=== PATIENT | female | born 1990 | race Caucasian/White ===

== ENCOUNTER 2018-05-16 02:05 | Inpatient (IN) | payer MEDICAID, SELFPAY ==
[2018-05-16] VITALS (36 sets, daily range): BP systolic 83–129; BP diastolic 34–91; PULSE 53–743; RESP 12–24; TEMP 36.7–37.3; O2SAT 92–100; BMI 21.7; BMI 20.8
[2018-05-16] MEDS: Naloxone 2 MG/2 ML Syringe IV ×4 (02:06→02:25)
--- NOTE | 2018-05-16 02:30 | RAD_ITS ---
STUDY: X-RAY CHEST REASON FOR EXAM: Female, 28 years old. Found unresponsive. Suspect overdose. TECHNIQUE: Single AP portable view of the chest. COMPARISON: Prior comparison studies are not available for review at this time. FINDINGS: There is an endotracheal tube with its tip approximately 5.5 cm proximal to the ena. There is a nasogastric tube at this tip below the level of the diaphragm. There is a small density in the left midlung zone likely due to granuloma. No focal infiltrate is seen. There is no demonstrated pleural abnormality. Normal size heart. Normal mediastinum and payal. Normal visualized pulmonary arteries. Normal visualized aortic arch and descending thoracic aorta. Normal visualized thoracic spine. Normal visualized ribs, clavicles, and shoulders. There is no demonstrated abnormality of the visualized soft tissue structures of the upper abdomen. RAD/Chest 1 View (Portable) IMPRESSION: 1. Status post intubation and nasogastric tube placement. 2. No active pulmonary disease. Electronically Signed: Anthony Montgomery MD at 3:10 EDT Tel , Service support ,
--- NOTE | 2018-05-16 02:30 | EKG12_ITS ---
Test Reason : Blood Pressure : / mmHG Vent. Rate : 090 BPM Atrial Rate : 090 BPM P-R Int : 160 ms QRS Dur : 096 ms QT Int : 364 ms P-R-T Axes : 067 090 -04 degrees QTc Int : 445 ms Normal sinus rhythm Rightward axis T wave abnormality, consider anterior ischemia Abnormal ECG Confirmed by ANDREINA ZENDEJAS, AUGUSTINE ([id number]), senior technical editor ISABELLA CARDENAS ([id number]) on 05/21/2018 9:22:10 AM Referred By: WILLIAM Confirmed By:AUGUSTNIE HDZ MD
--- NOTE | 2018-05-16 02:31 | CT_ITS ---
STUDY: CT BRAIN WITHOUT CONTRAST REASON FOR EXAM: Female, 28 years old. UNRESPONSIVE,PT GIVEN NARCAN HX HERIION ABUSE RADIATION DOSAGE (If Supplied By Facility): CTDIvol = ( 44.99 ) mGy, DLP = ( 796.11 ) mGycm TECHNIQUE: Transaxial CT imaging of the brain was performed without administration of intravenous contrast material. Individualized dose optimization techniques were used for this CT. COMPARISON: None. FINDINGS: Normal soft tissue structures. Normal calvarium. Normal size ventricles and extra-axial spaces for the patient's age. Normal white matter tracts of the cerebral hemispheres. Normal basal ganglia and thalami. Normal brainstem. Normal cerebellum. There is no intracranial hemorrhage. There are no findings of an acute ischemic infarction. Normal visualized paranasal sinuses. CT/Brain/Head without Contrast IMPRESSION: Normal unenhanced CT scan of the brain. Electronically Signed: Joe Aponte MD at 3:54 EDT Tel , Service support ,
[2018-05-16 02:35] LABS: Bedside Glucose 121 mg/dL (70-110)
[2018-05-16] MEDS: 0.9% Normal Saline 1,000 ML 999 ML IV (02:36)
[2018-05-16] MEDS: Succinylcholine Chloride 200 MG/10 ML Vial 100 MG IV (02:51)
[2018-05-16] MEDS: Etomidate 20 MG/10 ML Vial IV (02:51)
[2018-05-16 03:01] LABS: Mucous, Urine 0 SEEN /hpf (<or=2+); Red Blood Cells-Urine 0 SEEN /hpf (0-5); White Blood Cells 0 SEEN /hpf (0-5)
[2018-05-16 03:03] LABS: Color, Urine Yellow (Yellow); Glucose, Dipstick Normal (Normal); Ketone-Dipstick Negative (Negative); Leukocyte Esterase-Dipstick Negative /ul (Negative); Nitrite-Dipstick Negative (Negative); Occult Blood-Urine Negative /ul (Negative); Protein-Dipstick 100 mg/dl (Negative); Urine Bilirubin Dipstick Negative (Negative); Urine Clarity Clear (Clear); Urine Urobilinogen Normal (Normal); Urine pH 6.5 (5.0 - 8.0)
[2018-05-16 03:06] LABS: Internal QC Validated? YES +Cl - CLEAR BKGD; Pregnancy, Urine Negative Negative
[2018-05-16 03:09] LABS: Amorphous Sediment 1+; Bacteria RARE /hpf (None Seen); Squamous Epithelial Cells - UA 0-5 SEEN /hpf (5-10)
[2018-05-16 03:18] LABS: Amphetamine Urine VISTA NEGATIVE (<1000 ng/mL); Barbiturate Urine VISTA NEGATIVE (< 200 ng/mL); Benzodiazepine Urine VISTA NEGATIVE (< 200 ng/mL); Cocaine Urine VISTA NEGATIVE (< 300 ng/mL); Ecstacy Urine VISTA NEGATIVE (< 500 ng/mL); Methadone Urine VISTA NEGATIVE (< 300 ng/mL); PCP Urine VISTA NEGATIVE (< 25 ng/mL); THC Urine VISTA NEGATIVE (< 50 ng/mL)
--- NOTE | 2018-05-16 03:27 | ED.RN ---
0310 pt went to cat scan and back.pt decorticate,preparing for central line.
--- NOTE | 2018-05-16 03:44 | ED.VIS.GEN ---
History of Present Illness Chief Complaint: Unresponsive Informant: Pct Limited by: Coma Narrative: Patient brought in by EMS, she was apparently found in a parking lot with bystanders that did not know who she was or anything about the context. She was unconscious and unresponsive. Paramedics state that she was basically barely breathing so they began bagging her and were unable to obtain an IV, so they gave her 2 mg of Narcan intranasally as they continue to bag her. She initially was very bradycardic with a pulse less than 20 and they did CPR for several minutes, but then her pulse sped up so they stopped. Past Medical History Primary Care Physician: Care Physician,No Primary [Primary Care Provider] - Past Medical History: - - Unknown Review of Systems ROS: Unable to Obtain Physical Exam Vital Signs/Narrative: Vital Signs Temp Pulse Resp BP Pulse Ox 05/16/18 02:59 98.0 F 05/16/18 02:37 86 22 H 83/57 L 97 05/16/18 02:22 87 24 H 83/53 L 95 05/16/18 02:13 81 20 H 93/43 L 92 05/16/18 02:07 80 16 93 Inital Vital Signs reviewed: Yes General: Well nourished, Well developed Head: Normocephalic, Atraumatic Eyes: Perrl - Initially 2-3 mm and sluggishly responsive; improved after Narcan and more dilated, EOMI ENT: Moist mucous membranes, No rhinorrhea, TM's clear Neck: Supple, Nontender Cardiovascular: Regular rate, Regular rhythm, No murmurs Respiratory: No distress, CTA bilaterally, Chest nontender, Decreased Air Movement Abdomen: Soft, Nontender, Nondistended, Normal bowel sounds Back: Nontender, Normal Inspection Extremities: Nontender, No edema Skin: Normal color, No Trauma, - - Several old antecubital and ankle scars that appear to be consistent with track salazar.. Negative for: Cyanosis, Diaphoresis, Jaundice Neurological: Coma - GCS 3. All 4 extremities flaccid. Diagnostic/Tx/Re-eval Clinical Impression(s) from Imaging Studies Chest X-Ray 05/16/18 02:30 IMPRESSION: 1. Status post intubation and nasogastric tube placement. 2. No active pulmonary disease. Electronically Signed: Anthony Montgomery MD at 3:10 EDT Tel , Service support , - Rhythm Strip Rhythm Strip: Sinus Rhythm Rate: 75 Ectopy: None - EKG Initial EKG Interpretation: Sinus Rhythm Prior: No Prior - Medical Decision Making As patient was now breathing, she was supported with respiratory, nursing, and myself at bedside, we administered another 2 mg of Narcan intranasally in addition to the paramedics single dose of 2 mg, while we attempted to obtain IV access. Blood sugar is 140s. Vital signs are looking good except for blood pressure which is borderline at 89 systolic and MAP 65. Intraosseous kit was ready and I had prepped her tibia for placement because of extreme difficulty getting the line but eventually a nurse was able to get one on her third attempt. Therefore we gave 3 doses total of IV Narcan 2 mg for a total Narcan dosing of 10 mg including what she received from paramedics. She did improve but she never woke up, and her respirations became sonorous and noisy with upper airway secretions. She also began performing decerebrate posturing with her arms, increasing her GCS to 4. Therefore we elected to intubate her for airway protection and continue workup. Nursing was not able to even draw blood from her veins anywhere. Therefore after we verified to placement with chest x-ray, obtained EKG which is unremarkable, and sent her for CT head, which appears unremarkable, I emergently placed a right subclavian vein triple-lumen central line 16 cm catheter, for access and for blood studies. Curtis catheter was placed for urine studies. She will be admitted to the ICU for further evaluation and treatment for what is suspected to be cerebral ischemia from hypoxemia, probably caused by an opiate overdose. Procedures Procedure(s): Rapid sequence intubation --pretreated with oxygen, etomidate 20 mg, succinylcholine 100 mg. Intubated by myself using a MAC 3, direct laryngoscopy, the tube was visualized passing through the cords, there is no need for cricoid pressure or any other assistance device. The tube was secured at 21 cm at the lip, there was good fogging of the tube, equal breath sounds bilaterally, and good color change on CO2. Central line --prepped and draped in a sterile fashion at the right subclavian site with chlorhexidine. Anesthetized with a total of 2.5 cc plain 1% lidocaine. Finder needle found dark red nonpulsatile blood on first attempt, 16 cm triple-lumen catheter was placed via modified Seldinger technique, all 3 ports korin back dark red blood and flushed easily. Secured, awaiting chest x-ray for verification. Critical care time (excluding procedures): 30-74 minutes - 40 minutes, not including procedures ED Disposition - Plan for ED Patient: Disposition: Acute Care Hospital [facility] Chief Complaint: Unresponsive Diagnosis: Unresponsive state, Opioid overdose, Respiratory failure
--- NOTE | 2018-05-16 03:48 | ED.DCSUM_ITS ---
History of Present Illness Chief Complaint: Unresponsive Informant: [employer] Limited by: Coma Narrative: Patient brought in by EMS, she was apparently found in a parking lot with bystanders that did not know who she was or anything about the context. She was unconscious and unresponsive. Paramedics state that she was basically barely breathing so they began bagging her and were unable to obtain an IV, so they gave her 2 mg of Narcan intranasally as they continue to bag her. She initially was very bradycardic with a pulse less than 20 and they did CPR for several minutes, but then her pulse sped up so they stopped. Past Medical History Primary Care Physician: Care Physician,No Primary [Primary Care Provider] - Past Medical History: - - Unknown Review of Systems ROS: Unable to Obtain Physical Exam Vital Signs/Narrative: Vital Signs Temp Pulse Resp BP Pulse Ox 05/16/18 02:59 98.0 F 05/16/18 02:37 86 22 H 83/57 L 97 05/16/18 02:22 87 24 H 83/53 L 95 05/16/18 02:13 81 20 H 93/43 L 92 05/16/18 02:07 80 16 93 Inital Vital Signs reviewed: Yes General: Well nourished, Well developed Head: Normocephalic, Atraumatic Eyes: Perrl - Initially 2-3 mm and sluggishly responsive; improved after Narcan and more dilated, EOMI ENT: Moist mucous membranes, No rhinorrhea, TM's clear Neck: Supple, Nontender Cardiovascular: Regular rate, Regular rhythm, No murmurs Respiratory: No distress, CTA bilaterally, Chest nontender, Decreased Air Movement Abdomen: Soft, Nontender, Nondistended, Normal bowel sounds Back: Nontender, Normal Inspection Extremities: Nontender, No edema Skin: Normal color, No Trauma, - - Several old antecubital and ankle scars that appear to be consistent with track salazar.. Negative for: Cyanosis, Diaphoresis , Jaundice Neurological: Coma - GCS 3. All 4 extremities flaccid. Diagnostic/Tx/Re-eval Clinical Impression(s) from Imaging Studies Chest X-Ray 05/16/18 02:30 IMPRESSION: 1. Status post intubation and nasogastric tube placement. 2. No active pulmonary disease. Electronically Signed: Anthony Montgomery MD at 3:10 EDT Tel , Service support , - Rhythm Strip Rhythm Strip: Sinus Rhythm Rate: 75 Ectopy: None - EKG Initial EKG Interpretation: Sinus Rhythm Prior: No Prior - Medical Decision Making As patient was now breathing, she was supported with respiratory, nursing, and myself at bedside, we administered another 2 mg of Narcan intranasally in addition to the paramedics single dose of 2 mg, while we attempted to obtain IV access. Blood sugar is 140s. Vital signs are looking good except for blood pressure which is borderline at 89 systolic and MAP 65. Intraosseous kit was ready and I had prepped her tibia for placement because of extreme difficulty getting the line but eventually a nurse was able to get one on her third attempt. Therefore we gave 3 doses total of IV Narcan 2 mg for a total Narcan dosing of 10 mg including what she received from paramedics. She did improve but she never woke up, and her respirations became sonorous and noisy with upper airway secretions. She also began performing decerebrate posturing with her arms, increasing her GCS to 4. Therefore we elected to intubate her for airway protection and continue workup. Nursing was not able to even draw blood from her veins anywhere. Therefore after we verified to placement with chest x- ray, obtained EKG which is unremarkable, and sent her for CT head, which appears unremarkable, I emergently placed a right subclavian vein triple-lumen central line 16 cm catheter, for access and for blood studies. Curtis catheter was placed for urine studies. She will be admitted to the ICU for further evaluation and treatment for what is suspected to be cerebral ischemia from hypoxemia, probably caused by an opiate overdose. Procedures Procedure(s): Rapid sequence intubation --pretreated with oxygen, etomidate 20 mg, succinylcholine 100 mg. Intubated by myself using a MAC 3, direct laryngoscopy, the tube was visualized passing through the cords, there is no need for cricoid pressure or any other assistance device. The tube was secured at 21 cm at the lip, there was good fogging of the tube, equal breath sounds bilaterally, and good color change on CO2. Central line --prepped and draped in a sterile fashion at the right subclavian site with chlorhexidine. Anesthetized with a total of 2.5 cc plain 1% lidocaine. Finder needle found dark red nonpulsatile blood on first attempt, 16 cm triple-lumen catheter was placed via modified Seldinger technique, all 3 ports korin back dark red blood and flushed easily. Secured, awaiting chest x-ray for verification. Critical care time (excluding procedures): 30-74 minutes - 40 minutes, not including procedures ED Disposition - Plan for ED Patient: Disposition: Acute Care Hospital [facility] Chief Complaint: Unresponsive Diagnosis: Unresponsive state, Opioid overdose, Respiratory failure
--- NOTE | 2018-05-16 03:54 | ED.RN ---
RT SUBCLAVIAN TRIPLE LUMEN CATHETER PLACED BY DR. ALEXANDRA WITHOUT DIFFICULTY. BLOOD DRAWN FOR LABS. DRESSING PLACED.
[2018-05-16 03:56] LABS: Vista UDS pH Range 7
--- NOTE | 2018-05-16 03:56 | ED.RN ---
THIS NURSE CALLED THE LAST NUMBER THAT WE HAD FOR HER MOTHER PATRICIO, THE PHONE WENT TO [employer] AND A MESSAGE WAS LEFT STATING THAT WE WERE CALLING FROM THE HOSPITAL AND TO GIVE US A CALL BACK.
--- NOTE | 2018-05-16 04:00 | RAD_ITS ---
STUDY: X-RAY CHEST REASON FOR EXAM: Female, 28 years old. Line placement TECHNIQUE: Single AP portable view of the chest. COMPARISON: Chest x-ray earlier FINDINGS: Stable ET tube and enteric tube. Placement of right subclavian central venous catheter with tip in the mid SVC. No pneumothorax. The lungs are clear and expanded. There is no demonstrated pleural abnormality. Normal size heart. Normal mediastinum and payal. Normal visualized pulmonary arteries. Normal visualized aortic arch and descending thoracic aorta. Normal visualized thoracic spine. Normal visualized ribs, clavicles, and shoulders. There is no demonstrated abnormality of the visualized soft tissue structures of the upper abdomen. RAD/Chest 1 View (Portable) IMPRESSION: Clear lungs. Stable ET tube and enteric tube, adequately positioned. Right subclavian central venous catheter with tip in mid SVC. No pneumothorax. Electronically Signed: Nate De DO at 5:05 EDT Tel , Service support ,
--- NOTE | 2018-05-16 04:00 | ED.RN ---
information obtained from boyfriend.
--- NOTE | 2018-05-16 04:01 | ED.RN ---
OFFICER FROM [facility] TOOK CUSTODY OF PT CELL PHONE
[2018-05-16 04:09] LABS: Absolute Lymphocyte Count 1.44 X10^3/ul (0.83-4.51); Absolute Neutrophil Count 7.7 X10^3/uL (2.0-7.7); Basophil# 0.03 X10^3/uL; Basophil% 0.3 % (0-1); Eosinophil# 0.05 X10^3/uL; Eosinophils% 0.5 % (0-5); Hematocrit 35.4 % (37-47); Hemoglobin 11.8 g/dl (12.0-15.0); Lymphocyte # 1.44 X10^3/ul (4.0); Lymphocyte % 14.4 % (19-41); Mean Corp Hgb Conc 33.3 g/gl (32-36); Mean Corpuscular Volume 90.1 fL (81-99); Mean Platelet Vol. 10.6 fl (6.2-12.0); Monocyte# 0.77 X10^3/uL; Monocyte% 7.7 % (0-10); Neutrophil # 7.68 X10^3/uL (2.7-7.7); Neutrophil % 76.9 % (47-70); Platelet Count 230 K/mm3 (150-450); RBC Distribution Width CV 13.9 % (11.6-14.6); RBC Distribution Width SD 45.3 fl (35.1-43.9); Red Blood Count 3.93 M/mm3 (4.2-5.4)
[2018-05-16 04:10] LABS: POSITIVE COUNT NO; POSITIVE DIFFERENTIAL NO; POSITIVE MORPHOLOGY NO
[2018-05-16 04:18] LABS: AST(SGOT) 40 U/L (15-37); Alanine Aminotransfer ALT/SGPT 49 U/L (13-56); Albumin, Serum 3.4 g/dL (3.2-5.0); Alkaline Phosphatase 60 U/L (45-117); Anion Gap 11 (5-15); BUN 16 mg/dL (7-18); BUN/Creat Ratio 19.5 RATIO (10-20); Bilirubin, Direct 0.09 mg/dL (0.00-0.30); Calcium,Total 7.8 mg/dL (8.5-10.1); Chloride 116 mmol/L (98-107); Creatinine, Serum 0.82 mg/dL (0.55-1.02); EST Glomerular Filtration Rate 88 mL/min (>60); Est Glom Filt Rate - Afr Amer 106 mL/min (>60); Estimated Creatinine Clearance 110.45 ml/min; Globulin 3.4 g/dL (2.2-4.2); Glucose 108 mg/dL (74-106); Potassium 3.5 mmol/L (3.5-5.1); Protein, Total 6.8 g/dL (6.4-8.2); Sodium Level 146 mmol/L (136-145)
[2018-05-16 04:31] LABS: Base Excess -10 mmol/L (-2 to +2); Bicarbonate 16.8 mmol/L (22-26); Blood Gas Specimen Type ART; FI02 30; Mode A-C; O2 Delivery Device Vent; PEEP 5; PO2 136 mmHG (75-100); RR 22; SITE R Radial; SO2 99 % (95-99); Total Carbon Dioxide 18 mmol/L; Vt 500; pCO2 36.3 mmHg (35-45); pH 7.28 (7.35-7.45)
[2018-05-16] MEDS: LORazepam 2 MG/ML Syringe IV (04:38)
--- NOTE | 2018-05-16 04:38 | ED.RN ---
0430 PT RESTLESS,BILAT SOFT WRIST RESTRAINTS APPLIED.ATIVAN GIVEN FOR RESTLESSNESS.
--- NOTE | 2018-05-16 04:45 | ED.RN ---
[facility] CONTACTED TO ATTEMPT TO MAKE CONTACT WITH PT MOTHER AT THE LISTED ADDRESS
--- NOTE | 2018-05-16 05:00 | PCM.HP.STD ---
Problem List (1) Acute encephalopathy Status: Acute History of Present Illness Date of Admission: 05/16/18 Chief Complaint: Unresponsiveness The patient is a 28 year old F with a significant history of substance abuse (drug of choice, heroine) ; and tobacco abuse who was brought by the paramedics to the ED because of unresponsiveness. History was provided by her boyfriend. Patient was in the bar with her boyfriend. Patient was drinking alcohol in a bar. Her boyfriend went to the bathroom and upon return found that patient had passed out. The patient's lips and face were turning blue. Paramedics came and CPR was initiated. Per information passed on from paramedics to ED doctor, patient had bradycardia but with CPR patient began to have good pulses. Patient received narcan at the field; and narcan at the ED making a total of 10mg of narcan. Because of low [place] Coma Scale of 3 patient was intubated at emergency department; NG tube placed and subclavian line also placed because of difficulty in getting a peripheral venous access. Patient began to have more noisy breathing after receiving Narcan at emergency department and her pupil which was miotic became dilated. Before this episode and earlier in the day there was nothing out of the ordinary except the patient reported to the boyfriend that she was burning up. At emergency department it was reported that patient was initially having decerebrate posture. She was noted not to be breathing over the vent However during the course of her stay at emergency department she began to be agitated moving her extremities. Her heart rate at that time went into the 140s and her respiratory rate increased over the vent to about 29. 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 She spent 2 years in alf and was released 8 months ago. Her boyfriend reports that after release from alf he(boyfriend) has personally not seen patient using drugs. Past Medical History Allergies No Known Allergies Allergy (Verified 05/16/18 03:55) Home Medications: Ambulatory Orders Medication Instructions Recorded NK [NK] 05/16/18 Surgical History: - - Unable to obtain since patient is disoriented and intubated. [employer]OR [employer] History: - - Unable to obtain since patient is disoriented and intubated. Lives: With Family Smoking Status: Current every day smoker Tobacco Use: Cigarettes Alcohol: Heavy Drugs: Heroin - History of heroin use. Her boyfriend reported that he has seen patient used heroine after she returned from alf 8 months ago. Review of Systems Unable to obtain accurate/complete ROS d/t: Unable to obtain since patient is disoriented and intubated. VTE Information - Inpt Only VTE Present on Admission: No VTE Mechan Device Prophylaxis: None VTE Pharm Prophylaxis ordered?: Yes Patient Problems: Active and Suspected Problems Unresponsive state (Acute) Opioid overdose (Acute) Respiratory failure (Acute) Acute encephalopathy (Acute) - Physical Exam General: - - Patient intubated, mechanically ventilated and throwing extremities in bed HEENT: Atraumatic, PERRLA - Pupil initially was very sluggish to light but it improved, although it was still not brisk to light, Normocephalic Neck: Supple, No JVD Lungs: Clear to auscultation, Normal air movement, - - Initially respiration was the same as that of the vent (eupnea) but later she began to have tachypnea with moving of extremities in bed Cardiovascular: - - Initially regular but became tachycardic when patient became agitated and was moving her legs in bed. Abdomen: Hypoactive Bowel Sounds Extremities: No clubbing Skin: No rashes, No breakdown Musculoskeletal: No Muscle Wasting Lymphatic: No Cervical, Supraclavicular, or Inguinal Adenopathy Neurological: - - Patient intubated but not sedated; moving legs in the bed; but not following commands Psych/Mental Status: - - Patient intubated and not following commands Vital Signs Temp Pulse Resp BP Pulse Ox 98.0 F 69 12 103/63 100 05/16/18 02:59 05/16/18 04:53 05/16/18 04:53 05/16/18 04:53 05/16/18 04:53 Assessment/Plan All Active Problems Unresponsive state (Acute) Opioid overdose (Acute) Respiratory failure (Acute) Acute encephalopathy (Acute) The patient is a 28 year old F with a significant history of substance abuse (drug of choice, heroine) ; and tobacco abuse who was brought by the paramedics from a drinking bar because of unresponsiveness requiring CPR and emergently intubated because of [place] Coma Scale of 3 but noted to moving her extremities later at emergency department.. 1.Acute encephalopathy Patient will be admitted to the intensive care unit ABG showed metabolic acidosis; PCO2 is 36 which per Winter's formula shows appropriate compensation Etiology is unclear at this point. Her urine drug screen was unremarkable. EKG independently reviewed showed sinus rhythm. CT brain independently reviewed showed no acute pathology Chest x-ray independently reviewed showed no acute pathology Urinalysis was unremarkable except for proteinuria. With her history of drug use it could be that she was intoxicated with some drug that could not be found by her drug screen; may be carfentanyl. It could also be that she was intoxicated from alcohol; Alcohol level is pending Infectious causes are unlikely due to the rapidity of symptoms. Patient intubated to protect airway. No continuous sedation at this point Fentanyl as needed for pain and agitation. Placed on CIWA protocol with thiamine, multivitamins; folic acid and Ativan prn GI prophylaxis with Pepcid Salicylate level; ammonia level; CPK and Tylenol ordered. Magnesium level; phosphorus level and lactic acid ordered. Supportive treatment with half-normal saline; of note patient has mild hypernatremia and hyperchloremia We will keep n.p.o. for now. Polisher Brass consult. 2.Hypernatremia with hyperchloremia Etiology unclear Half-normal saline ordered. 250 mL's of free water to flush G-tube every 6 hours. 3.Non-anion gap metabolic acidosis Likely secondary to #1 Treatment as above. 4.Hypocalcemia Corrected calcium for albumin is 8.3; mildly low Trend 5.Tobacco abuse Her boyfriend reports that one pack of cigarettes last patient for a couple of days. Nicotine 7 mg patch ordered since patient is agitated. Straw Baler when appropriate 4.DVT prophylaxis Subcutaneous heparin. Code Visit Inpatient E&M: 68387 Init Hosp L3
--- NOTE | 2018-05-16 05:04 | HP.PCM_ITS ---
Problem List (1) Acute encephalopathy Status: Acute History of Present Illness Date of Admission: 05/16/18 Chief Complaint: Unresponsiveness The patient is a 28 year old F with a significant history of substance abuse ( drug of choice, heroine) ; and tobacco abuse who was brought by the paramedics to the ED because of unresponsiveness. History was provided by her boyfriend. Patient was in the bar with her boyfriend. Patient was drinking alcohol in a bar. Her boyfriend went to the bathroom and upon return found that patient had passed out. The patient's lips and face were turning blue. Paramedics came and CPR was initiated. Per information passed on from paramedics to ED doctor, patient had bradycardia but with CPR patient began to have good pulses. Patient received narcan at the field; and narcan at the ED making a total of 10mg of narcan. Because of low Boston Coma Scale of 3 patient was intubated at emergency department; NG tube placed and subclavian line also placed because of difficulty in getting a peripheral venous access. Patient began to have more noisy breathing after receiving Narcan at emergency department and her pupil which was miotic became dilated. Before this episode and earlier in the day there was nothing out of the ordinary except the patient reported to the boyfriend that she was burning up. At emergency department it was reported that patient was initially having decerebrate posture. She was noted not to be breathing over the vent However during the course of her stay at emergency department she began to be agitated moving her extremities. Her heart rate at that time went into the 140s and her respiratory rate increased over the vent to about 29. 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 She spent 2 years in [facility] and was released 8 months ago. Her boyfriend reports that after release from [facility] he(boyfriend) has personally not seen patient using drugs. Past Medical History Allergies No Known Allergies Allergy (Verified 05/16/18 03:55) Home Medications: Ambulatory Orders Medication Instructions Recorded NK [NK] 05/16/18 Surgical History: - - Unable to obtain since patient is disoriented and intubated. 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 Lives: With Family Smoking Status: Current every day smoker Tobacco Use: Cigarettes Alcohol: Heavy Drugs: Heroin - History of heroin use. Her boyfriend reported that he has seen patient used heroine after she returned from [facility] 8 months ago. Review of Systems Unable to obtain accurate/complete ROS d/t: Unable to obtain since patient is disoriented and intubated. VTE Information - Inpt Only VTE Present on Admission: No VTE Mechan Device Prophylaxis: None VTE Pharm Prophylaxis ordered?: Yes Patient Problems: Active and Suspected Problems Unresponsive state (Acute) Opioid overdose (Acute) Respiratory failure (Acute) Acute encephalopathy (Acute) - Physical Exam General: - - Patient intubated, mechanically ventilated and throwing extremities in bed HEENT: Atraumatic, PERRLA - Pupil initially was very sluggish to light but it improved, although it was still not brisk to light, Normocephalic Neck: Supple, No JVD Lungs: Clear to auscultation, Normal air movement, - - Initially respiration was the same as that of the vent (eupnea) but later she began to have tachypnea with moving of extremities in bed Cardiovascular: - - Initially regular but became tachycardic when patient became agitated and was moving her legs in bed. Abdomen: Hypoactive Bowel Sounds Extremities: No clubbing Skin: No rashes, No breakdown Musculoskeletal: No Muscle Wasting Lymphatic: No Cervical, Supraclavicular, or Inguinal Adenopathy Neurological: - - Patient intubated but not sedated; moving legs in the bed; but not following commands Psych/Mental Status: - - Patient intubated and not following commands Vital Signs Temp Pulse Resp BP Pulse Ox 98.0 F 69 12 103/63 100 05/16/18 02:59 05/16/18 04:53 05/16/18 04:53 05/16/18 04:53 05/16/18 04:53 Assessment/Plan All Active Problems Unresponsive state (Acute) Opioid overdose (Acute) Respiratory failure (Acute) Acute encephalopathy (Acute) The patient is a 28 year old F with a significant history of substance abuse ( drug of choice, heroine) ; and tobacco abuse who was brought by the paramedics from a drinking bar because of unresponsiveness requiring CPR and emergently intubated because of Powers Coma Scale of 3 but noted to moving her extremities later at emergency department.. 1.Acute encephalopathy Patient will be admitted to the intensive care unit ABG showed metabolic acidosis; PCO2 is 36 which per Winter's formula shows appropriate compensation Etiology is unclear at this point. Her urine drug screen was unremarkable. EKG independently reviewed showed sinus rhythm. CT brain independently reviewed showed no acute pathology Chest x-ray independently reviewed showed no acute pathology Urinalysis was unremarkable except for proteinuria. With her history of drug use it could be that she was intoxicated with some drug that could not be found by her drug screen; may be carfentanyl. It could also be that she was intoxicated from alcohol; Alcohol level is pending Infectious causes are unlikely due to the rapidity of symptoms. Patient intubated to protect airway. No continuous sedation at this point Fentanyl as needed for pain and agitation. Placed on CIWA protocol with thiamine, multivitamins; folic acid and Ativan prn GI prophylaxis with Pepcid Salicylate level; ammonia level; CPK and Tylenol ordered. Magnesium level; phosphorus level and lactic acid ordered. Supportive treatment with half-normal saline; of note patient has mild hypernatremia and hyperchloremia We will keep n.p.o. for now. Extract Puller consult. 2.Hypernatremia with hyperchloremia Etiology unclear Half-normal saline ordered. 250 mL's of free water to flush G-tube every 6 hours. 3.Non-anion gap metabolic acidosis Likely secondary to #1 Treatment as above. 4.Hypocalcemia Corrected calcium for albumin is 8.3; mildly low Trend 5.Tobacco abuse Her boyfriend reports that one pack of cigarettes last patient for a couple of days. Nicotine 7 mg patch ordered since patient is agitated. Food Counselor when appropriate 4.DVT prophylaxis Subcutaneous heparin. Code Visit Inpatient E&M: 87815 Init Hosp L3
[2018-05-16] MEDS: 0.45% Normal Saline 1,000 ML 75 ML IV (05:51)
[2018-05-16] MEDS: Heparin Injection (Vial) 5,000 UNIT/ML VIAL 5000 UNIT SC ×2 (05:52→22:06)
[2018-05-16 06:02] LABS: Hematocrit 34.4 % (37-47); Hemoglobin 11.5 g/dl (12.0-15.0); Mean Corp Hgb Conc 33.4 g/gl (32-36); Mean Corpuscular Hgb 30.3 pg (27.0-32.0); Mean Corpuscular Volume 90.8 fL (81-99); Mean Platelet Vol. 10.6 fl (6.2-12.0); Platelet Count 231 K/mm3 (150-450); RBC Distribution Width SD 45.8 fl (35.1-43.9); Red Blood Count 3.79 M/mm3 (4.2-5.4); Scan Indicated on CBC? Y/N NO; White Blood Count 10.5 K/mm3 (4.4-11.0)
--- NOTE | 2018-05-16 06:13 | NURSING ---
restraints applied in ED because pt was intubated and unable to follow commands. pt continues to be intubated in the ICU with no sedation. bilateral wrist restraints in place with no issues.
[2018-05-16 06:16] LABS: Anion Gap 9 (5-15); BUN 15 mg/dL (7-18); BUN/Creat Ratio 21.2 RATIO (10-20); Calcium,Total 7.9 mg/dL (8.5-10.1); Chloride 117 mmol/L (98-107); Creatinine, Serum 0.71 mg/dL (0.55-1.02); EST Glomerular Filtration Rate 105 mL/min (>60); Est Glom Filt Rate - Afr Amer 127 mL/min (>60); Estimated Creatinine Clearance 122.91 ml/min; Glucose 100 mg/dL (74-106); Sodium Level 146 mmol/L (136-145)
[2018-05-16 06:19] LABS: Ammonia < 10.0 umol/L (11-32)
[2018-05-16 06:22] LABS: CPK Total, Creatine Kinase 86 U/L (26-192)
[2018-05-16 06:24] LABS: Phosphorus 2.8 mg/dL (2.5-4.9)
[2018-05-16 06:31] LABS: Salicylate 2.5 mg/dL (2.8-20.0)
[2018-05-16 06:44] LABS: Acetaminophen (Tylenol) Level < 2.0 ug/mL (10.0-30.0)
[2018-05-16 07:13] LABS: Lactic Acid 1.8 mmol/L (0.4-2.0)
--- NOTE | 2018-05-16 07:21 | PN_ITS ---
Patient Problems: Active and Suspected Problems Unresponsive state (Acute) Opioid overdose (Suspected) Respiratory failure (Acute) Acute encephalopathy (Acute) Subjective: Patient has been seen and examined. Remains intubated. Not responsive, not on pressors. Vitals/I&O's: Vital Signs Temp Pulse Resp BP Pulse Ox 98.5 F 71 12 109/70 100 05/16/18 06:01 05/16/18 06:30 05/16/18 06:30 05/16/18 06:30 05/16/18 06:30 Oxygen Delivery Method Mechanical Ventilator Weight: 66 kg Body Mass Index (BMI) 20.8 Intake and Output for Last 24 Hours 05/14/18 05/15/18 05/16/18 23:59 23:59 23:59 Output Total 350 / 350 Balance -350 / -350 General: - - Intubated, mechanical ventilator, no sedated, unresponsive to sternal rubs or verbal commands, HEENT: - - Pupils enlarged, react to light sluggishly, gag reflex reportedly present Oral: Dry Mucosa Neck: Supple, No JVD, Negative Carotid Bruits Lungs: Clear to auscultation, Normal air movement Cardiovascular: Regular rate, No murmurs Abdomen: Bowel Sounds Present, Soft, Non Tender Extremities: No edema, Capillary Refill Less than 3 Seconds Skin: No rashes, No breakdown Musculoskeletal: No Tenderness to Palpation of Joints or Extremities Lymphatic: No Cervical, Supraclavicular, or Inguinal Adenopathy Neurological: Cranial nerves II-XII grossly intact Psych/Mental Status: Normal Affect, Appropriate Laboratory Results 05/16/18 05:45: Ethyl Alcohol 142.0 05/16/18 05:45: Acetaminophen < 2.0 L 05/16/18 05:45: Ammonia < 10.0 L 05/16/18 05:45: Salicylates 2.5 L 05/16/18 05:45: Sodium 146 H, Potassium 4.0, Chloride 117 H, Carbon Dioxide 20.0 L, Anion Gap 9, BUN 15, Creatinine 0.71, Estim Creat Clear Calc 122.91, Est GFR (MDRD) Af Amer 127, Est GFR (MDRD) Non-Af 105, BUN/Creatinine Ratio 21.2 H, Glucose 100, Calcium 7.9 L, Magnesium 2.0 05/16/18 05:45: WBC 10.5, RBC 3.79 L, Hgb 11.5 L, Hct 34.4 L, MCV 90.8, MCH 30.3 , MCHC 33.4, RDW 14.0, RDW Differential 45.8 H, Plt Count 231, MPV 10.6 05/16/18 05:45: Phosphorus 2.8 05/16/18 05:45: Total Creatine Kinase 86 05/16/18 06:43: Lactic Acid 1.8 Current Medications Albuterol Sulfate (Ventolin Aerosols) 2.5 mg INHALATION Q2H PRN PRN PRN Reason: sob/wheezing Bisacodyl (Dulcolax) 5 mg PO DAILY PRN PRN PRN Reason: Constipation Chlorhexidine Gluconate () 15 ml PO BID [facility] Famotidine (Pepcid) 20 mg PO BID [facility] Fentanyl Citrate (Sublimaze (100mcg Ampule)) 25 mcg IV Q1H PRN PRN PRN Reason: Agitation/pain Folic Acid (Folic Acid) 1 mg PO DAILY@0800 [facility] Stop: 05/18/18 08:01 Heparin Sodium (Porcine) (Heparin Na) 5,000 unit SC Q8 [facility] Last Admin: 05/16/18 05:52 Dose: 5,000 unit Sodium Chloride () 1,000 mls @ 75 mls/hr IV .[id number] [facility] Last Admin: 05/16/18 05:51 Dose: 75 mls/hr Sodium Chloride () 250 mls @ 15 mls/hr IV .[id number] PRN PRN Reason: SALINE FLUSH Lorazepam (Ativan) 2 mg PO Q2H PRN PRN; Protocol PRN Reason: CIWA score > 8 but <15 Lorazepam (Ativan) 2 mg IV Q2H PRN PRN; Protocol PRN Reason: CIWA score > 8 but <15 Lorazepam (Ativan) 2 mg PO UD PRN; Protocol PRN Reason: CIWA score >/=15. Lorazepam (Ativan) 2 mg IV UD PRN; Protocol PRN Reason: CIWA score >/=15. Magnesium Hydroxide (Milk Of Magnesia) 30 ml PO DAILY PRN PRN PRN Reason: Constipation Multivitamins/Minerals (Multivitamin With Minerals) [facility] Nicotine (Nicoderm Cq (Pbkc)) 7 mg TRANSDERM. X1 [facility] Stop: 05/17/18 06:01 Last Admin: 05/16/18 06:39 Dose: Not Given Ondansetron HCl (Zofran) 4 mg IV Q8H PRN PRN PRN Reason: NAUSEA Senna/Docusate Sodium (Senokot-S, Diya-Colace) 2 tablet PO BID KIANNA Sodium Chloride () 5 - 30 ml IV UD PRN PRN Reason: SALINE FLUSH Sodium Chloride () 10 - 40 ml IV UD PRN PRN Reason: MULTILUMEN/HICMAN CATH FLUSH Last Admin: 05/16/18 05:51 Dose: 10 ml Thiamine HCl (Vitamin B1) 100 mg PO BIDCM [facility] Stop: 05/18/18 17:01 Medical Necessity - Tobacco Use Smoking Status: Current every day smoker Tobacco Use: Cigarettes Assessment/Plan All Active Problems Unresponsive state (Acute) Respiratory failure (Acute) Acute encephalopathy (Acute) 28-year-old female with reported history of polysubstance use admitted with unresponsiveness status post CPR and intubation to protect airway. 1. Acute metabolic encephalopathy, secondary to polysubstance use, questionable hypoxic encephalopathy, resolved patient was found unresponsive, had CPR done, Off all sedative, patient extubated later in the day, will continue to monitor 2. Hypernatremia, secondary dehydration, will encourage free water intake 3. Non-gap metabolic acidosis, likely secondary to fluid shifts, will repeat lab work in a.m. 4. Nicotine dependency, on nicotine patch 5. DVT Ppx- early ambulation Code Visit Inpatient E&M: 43846 Subs Hosp L2
--- NOTE | 2018-05-16 07:25 | PCM.CON.CC ---
Problem List (1) Unresponsive state Status: Acute (2) Opioid overdose Status: Suspected Qualifiers: Encounter type: initial encounter Injury intent: accidental or unintentional Qualified Code(s): T40.2X1A - Poisoning by other opioids, accidental (unintentional), initial encounter (3) Respiratory failure Status: Acute Qualifiers: Chronicity: acute Respiratory failure complication: hypoxia and hypercapnia Qualified Code(s): J96.01 - Acute respiratory failure with hypoxia; J96.02 - Acute respiratory failure with hypercapnia (4) Acute encephalopathy Status: Acute Reason for Consult Date of Consultation: 05/16/18 Reason for Consultation: Coma History of Present Illness: The patient is a 28 year old F, with no reported past medical history, who presented to [place] on 05/16/2018 after being found in a parking lot by bystanders. Patient was reportedly unconscious and unresponsive. Paramedics had reported a respiratory rate of 6. Patient was noted to have perioral cyanosis. Patient reportedly has a history of IV drug using and has been clean for 8 months. Patient were drinking at a bar and she was out of sight for some time prior to being found in the parking lot. Patient was given Narcan intranasally and back mask ventilation was initiated. Patient was noted to have a pulse less than 20 initially, but this did improve with CPR. Exact time of CPR is not available at this time. On arrival to the emergency room, patient was given additional Narcan. Patient received a total of 14 mg of Narcan. Blood sugars were noted to be acceptable. Patient had a central line placed and was intubated. There was some concern for decerebrate posturing. Patient was intubated with medications without complications. Laboratory workup showed an anion gap metabolic acidosis. Patient did have an elevated alcohol level and detectable salicylate and Tylenol levels. Patient is not responsive at this time. No family members or friends have arrived to provide more information. Past Medical History Allergies No Known Allergies Allergy (Verified 05/16/18 03:55) Home Medications: Ambulatory Orders Medication Instructions Recorded NK [NK] 05/16/18 Surgical History: - - Unable to obtain since patient is disoriented and intubated. 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 Lives: With Family Smoking Status: Current every day smoker Tobacco Use: Cigarettes Alcohol: Heavy Drugs: Heroin - History of heroin use. Her boyfriend reported that he has seen patient used heroine after she returned from skilled nursing 8 months ago. Review of Systems Unable to obtain accurate/complete ROS d/t: Intubated and unresponsive Patient Problems: Active and Suspected Problems Unresponsive state (Acute) Opioid overdose (Suspected) Respiratory failure (Acute) Acute encephalopathy (Acute) Objective: Chest x-ray was personally reviewed and shows no acute infiltrate with appropriate placement of supportive devices. CT scan of the head is normal by my review. - Physical Exam General: - - Intubated. No sedatives running at this time. Breathing with the ventilator. HEENT: - - Right pupil is sluggish. No facial droop is appreciated. Negative doll's eyes Oral: Moist Mucosa, No Gingival or Mucosal Lesions/ Ulcerations Neck: Supple, No JVD, No Nodes, Trachea Midline Lungs: Clear to auscultation, Normal air movement, No rhonchi, No wheeze, No rales, - - Symmetric expansion. No dullness to percussion. Cardiovascular: Regular rate, Regular Rhythm, Normal S1, Normal S2, No murmurs, No rub noted, No Gallop Abdomen: Bowel Sounds Present, Soft, Non Tender, Non-Distended Extremities: No clubbing, No cyanosis, No edema, Capillary Refill Less than 3 Seconds Skin: - - Possible track salazar noted in the antecubital and ankle areas. No jaundice or diaphoresis appreciated. Musculoskeletal: No Tenderness to Palpation of Joints or Extremities Lymphatic: No Cervical, Supraclavicular, or Inguinal Adenopathy Neurological: - - Positive cough, gag and corneal reflexes. Breathing with the ventilator. Mild posturing with sternal rub. Not responding to peripheral stimulation. Pupils are variable, but reactive Psych/Mental Status: Flat Affect Vital Signs Temp Pulse Resp BP Pulse Ox 36.9 C 71 12 109/70 100 05/16/18 06:01 05/16/18 06:30 05/16/18 06:30 05/16/18 06:30 05/16/18 06:30 Oxygen Delivery Method Mechanical Ventilator Weight: 66 kg Body Mass Index (BMI) 20.8 Intake and Output for Last 24 Hours 05/14/18 05/15/18 05/16/18 23:59 23:59 23:59 Output Total 350 / 350 Balance -350 / -350 Laboratory Tests Past 24 Hrs 05/16/18 05/16/18 05/16/18 05:45 05:45 05:45 WBC RBC Hgb Hct MCV MCH MCHC RDW RDW Differential Plt Count MPV Sodium Potassium Chloride Carbon Dioxide Anion Gap BUN Creatinine Estim Creat Clear Calc Est GFR (MDRD) Af Amer Est GFR (MDRD) Non-Af BUN/Creatinine Ratio Glucose Lactic Acid Calcium Phosphorus Magnesium Ammonia < 10.0 L Total Creatine Kinase Salicylates Acetaminophen < 2.0 L Ethyl Alcohol 142.0 05/16/18 05/16/18 05/16/18 05:45 05:45 05:45 WBC 10.5 RBC 3.79 L Hgb 11.5 L Hct 34.4 L MCV 90.8 MCH 30.3 MCHC 33.4 RDW 14.0 RDW Differential 45.8 H Plt Count 231 MPV 10.6 Sodium 146 H Potassium 4.0 Chloride 117 H Carbon Dioxide 20.0 L Anion Gap 9 BUN 15 Creatinine 0.71 Estim Creat Clear Calc 122.91 Est GFR (MDRD) Af Amer 127 Est GFR (MDRD) Non-Af 105 BUN/Creatinine Ratio 21.2 H Glucose 100 Lactic Acid Calcium 7.9 L Phosphorus Magnesium 2.0 Ammonia Total Creatine Kinase Salicylates 2.5 L Acetaminophen Ethyl Alcohol 05/16/18 05/16/18 05/16/18 05:45 05:45 06:43 WBC RBC Hgb Hct MCV MCH MCHC RDW RDW Differential Plt Count MPV Sodium Potassium Chloride Carbon Dioxide Anion Gap BUN Creatinine Estim Creat Clear Calc Est GFR (MDRD) Af Amer Est GFR (MDRD) Non-Af BUN/Creatinine Ratio Glucose Lactic Acid 1.8 Calcium Phosphorus 2.8 Magnesium Ammonia Total Creatine Kinase 86 Salicylates Acetaminophen Ethyl Alcohol Assessment/Plan Active and Suspected Problems Unresponsive state (Acute) Opioid overdose (Suspected) Respiratory failure (Acute) Acute encephalopathy (Acute) RECOMMENDATIONS: 1. Continue hemodynamic support 2. Neuro checks per protocol 3. Hold sedation until more interactive 4. Okay to initiate tube feeds 5. Increase tidal volume to 500 cc IMPRESSIONS: 1. Coma/possible drug overdose Exact etiology is unclear. Concern for opiate overdose, but no witnesses have come forward at this time. Patient did have perioral cyanosis and bradycardia suggesting prolonged hypoxemia. Patient does have some cranial nerves at this time. We will continue with mechanical ventilation and hemodynamic support with recurrent neurochecks. 2. Possible anoxic injury Unknown downtime. Patient does have some cranial reflexes at this time. CT scan of the head appears unremarkable for any bleed at this time. Neuro exam is nonfocal, so stroke is unlikely. No seizure activity has been noted. 3. History of IV drug use/alcohol Complicates care, management, recovery and prognosis. TIME: 45 minutes of critical care time spent addressing patient's coma, possible anoxic injury, review of all data and collaboration with care team (6:30 AM to 8 AM) Code Visit 9xxxx: [id number] Critical care first hour
[2018-05-16 07:40] LABS: Allen Test POS; Base Excess -7 mmol/L (-2 to +2); Bicarbonate 19.1 mmol/L (22-26); Blood Gas Specimen Type ART; FI02 30; Mode A-C; O2 Delivery Device Vent; PEEP 5; PO2 135 mmHG (75-100); RR 12; SITE R Radial; SO2 99 % (95-99); Time Given 730; Total Carbon Dioxide 20 mmol/L; Vt 450; pCO2 37.2 mmHg (35-45); pH 7.32 (7.35-7.45)
[2018-05-16] MEDS: Thiamine Hydrochloride 100 MG Tablet GT ×2 (09:10→22:05)
[2018-05-16] MEDS: Famotidine 20 MG Tablet GT ×2 (09:10→22:05)
[2018-05-16] MEDS: Multivitamins,Ther W-Minerals Tablet 1 TABLET GT (09:10)
[2018-05-16] MEDS: Folic Acid 1 MG Tablet GT (09:10)
[2018-05-16] MEDS: Chlorhexidine 15 ML PO (09:19)
--- NOTE | 2018-05-16 09:53 | CASEMGMT ---
RN CM Note: Per interdisciplinary rounds, pt remains on vent, cannot participate in RN CM assessment. SW reviewing for family and will see for self pay status and substance abuse when pt is able to participate. No PCP listed, however this cannot be confirmed @ this time. Lindsye LARSONN RN ACM
--- NOTE | 2018-05-16 10:37 | NURSING ---
Pt's boyfriend Flip called in to get an update on pt. Pt's parents do not want any visitors or information given to anyone except them. Flip informed Cate MTZ that they were drinking at [employer] and [employer] so that pt's parents could look for car. Flip's number [phone].
--- NOTE | 2018-05-16 11:17 | CASEMGMT ---
SW following for support and resources when appropriate. Liliam COLEMANW LEASE ATTENDANT
--- NOTE | 2018-05-16 12:15 | NURSING ---
Pt awake and attempting to pull out ET tube. Dr. Martin at bedside. After multiple attempts to sedate pt, order to extubate pt given by Dr. Martin. ET cuff deflated by Cate MTZ and ET tube and OG removed at this time. Pt placed on 6L N/C tolerating well. Pt oriented to situation per nursing. Pt does not remember coming in to ER.
[2018-05-16] MEDS: 0.9% NaCl Peripheral Flush Adult/Peds IV (16:15)
[2018-05-16] MEDS: Ondansetron 4 MG/2 ML Vial IV (16:15)
[2018-05-17] VITALS (10 sets, daily range): BP systolic 93–115; BP diastolic 47–70; PULSE 41–67; RESP 11–19; TEMP 36.6–37.1; O2SAT 95–99
[2018-05-17 04:32] LABS: Anion Gap 7 (5-15); BUN 12 mg/dL (7-18); BUN/Creat Ratio 23.8 RATIO (10-20); Calcium,Total 8.4 mg/dL (8.5-10.1); Chloride 110 mmol/L (98-107); EST Glomerular Filtration Rate 155 mL/min (>60); Est Glom Filt Rate - Afr Amer 187 mL/min (>60); Estimated Creatinine Clearance 174.53 ml/min; Glucose 84 mg/dL (74-106); Magnesium 2.4 mg/dL (1.6-2.6); Potassium 3.8 mmol/L (3.5-5.1); Sodium Level 143 mmol/L (136-145)
[2018-05-17 04:34] LABS: Phosphorus 2.3 mg/dL (2.5-4.9)
[2018-05-17] MEDS: 0.9% NaCl Peripheral Flush Adult/Peds IV (04:56)
[2018-05-17] MEDS: Heparin Injection (Vial) 5,000 UNIT/ML VIAL 5000 UNIT SC (04:56)
--- NOTE | 2018-05-17 06:35 | PCM.PN.INT ---
Subjective: Patient did well overnight. Patient has been on room air and able to move around independently. Crutis has been removed. Patient has no recollection of the events prior to her presentation. Patient is denying any pain. Patient does have a periodic cough, but is denying any chest pain. Patient did have some nausea and one episode of emesis yesterday. General: Alert, Oriented x3, Cooperative, No apparent distress, Well developed, Well nourished, - - Speaking in full sentences HEENT: Atraumatic, PERRLA, EOMI, Normocephalic, - - No scleral icterus or injection noted. Oral: Moist Mucosa, No Gingival or Mucosal Lesions/ Ulcerations Neck: Supple, No JVD, No Nodes, Trachea Midline Lungs: Clear to auscultation, Normal air movement, No rhonchi, No wheeze, No rales Cardiovascular: Regular rate, Regular Rhythm, Normal S1, Normal S2, No murmurs, No rub noted, No Gallop Abdomen: Bowel Sounds Present, Soft, Non Tender, Non-Distended Extremities: No clubbing, No cyanosis, No edema Skin: No rashes, No breakdown Musculoskeletal: No Tenderness to Palpation of Joints or Extremities Lymphatic: No Cervical, Supraclavicular, or Inguinal Adenopathy Neurological: Cranial nerves II-XII grossly intact, Neuro grossly intact, Motor Exam 5/5 strength throughout Psych/Mental Status: Alert and oriented to time, place, person, mood and affect Vital Signs Temp Pulse Resp BP Pulse Ox 37.1 C 51 L 19 H 100/65 98 05/17/18 04:00 05/17/18 06:00 05/17/18 06:00 05/17/18 06:00 05/17/18 06:00 Oxygen Flow Rate (L/min) 2 Oxygen Delivery Method Room Air Weight: 65.2 kg Body Mass Index (BMI) 20.8 Intake and Output for Last 24 Hours 05/15/18 05/16/18 05/17/18 23:59 23:59 23:59 Intake Total 782 / 782 180 / 180 Output Total 1150 / 1150 Balance -368 / -368 180 / 180 Labs (Last 48 Hours) 05/16/18 05/16/18 05/16/18 05:45 05:45 05:45 WBC RBC Hgb Hct MCV MCH MCHC RDW RDW Differential Plt Count MPV Specimen Type Sample Site pH Bicarbonate Actual POC Total CO2 Base Excess O2 Saturation O2 % ABG pCO2 ABG pO2 Leon Test Respiration Rate O2 Delivery Device Minute Volume Vent Mode Tidal Volume POC PEEP Blood Gas Notified Whom Blood Gas Notified Time Sodium Potassium Chloride Carbon Dioxide Anion Gap BUN Creatinine Estim Creat Clear Calc Est GFR (MDRD) Af Amer Est GFR (MDRD) Non-Af BUN/Creatinine Ratio Glucose Lactic Acid Calcium Phosphorus Magnesium Ammonia < 10.0 L Total Creatine Kinase Salicylates Acetaminophen < 2.0 L Ethyl Alcohol 142.0 05/16/18 05/16/18 05/16/18 05:45 05:45 05:45 WBC 10.5 RBC 3.79 L Hgb 11.5 L Hct 34.4 L MCV 90.8 MCH 30.3 MCHC 33.4 RDW 14.0 RDW Differential 45.8 H Plt Count 231 MPV 10.6 Specimen Type Sample Site pH Bicarbonate Actual POC Total CO2 Base Excess O2 Saturation O2 % ABG pCO2 ABG pO2 Leon Test Respiration Rate O2 Delivery Device Minute Volume Vent Mode Tidal Volume POC PEEP Blood Gas Notified Whom Blood Gas Notified Time Sodium 146 H Potassium 4.0 Chloride 117 H Carbon Dioxide 20.0 L Anion Gap 9 BUN 15 Creatinine 0.71 Estim Creat Clear Calc 122.91 Est GFR (MDRD) Af Amer 127 Est GFR (MDRD) Non-Af 105 BUN/Creatinine Ratio 21.2 H Glucose 100 Lactic Acid Calcium 7.9 L Phosphorus Magnesium 2.0 Ammonia Total Creatine Kinase Salicylates 2.5 L Acetaminophen Ethyl Alcohol 05/16/18 05/16/18 05/16/18 05:45 05:45 06:43 WBC RBC Hgb Hct MCV MCH MCHC RDW RDW Differential Plt Count MPV Specimen Type Sample Site pH Bicarbonate Actual POC Total CO2 Base Excess O2 Saturation O2 % ABG pCO2 ABG pO2 Leon Test Respiration Rate O2 Delivery Device Minute Volume Vent Mode Tidal Volume POC PEEP Blood Gas Notified Whom Blood Gas Notified Time Sodium Potassium Chloride Carbon Dioxide Anion Gap BUN Creatinine Estim Creat Clear Calc Est GFR (MDRD) Af Amer Est GFR (MDRD) Non-Af BUN/Creatinine Ratio Glucose Lactic Acid 1.8 Calcium Phosphorus 2.8 Magnesium Ammonia Total Creatine Kinase 86 Salicylates Acetaminophen Ethyl Alcohol 05/16/18 05/17/18 05/17/18 07:37 04:15 04:15 WBC RBC Hgb Hct MCV MCH MCHC RDW RDW Differential Plt Count MPV Specimen Type ART Sample Site R Radial pH 7.32 L Bicarbonate Actual 19.1 L POC Total CO2 20 Base Excess -7 L O2 Saturation 99 O2 % 30 ABG pCO2 37.2 ABG pO2 135 H Leon Test POS Respiration Rate 12 O2 Delivery Device Vent Minute Volume 6.00 Vent Mode A-C Tidal Volume 450 POC PEEP 5 Blood Gas Notified Whom ICU Blood Gas Notified Time 730 Sodium 143 Potassium 3.8 Chloride 110 H Carbon Dioxide 26.0 Anion Gap 7 BUN 12 Creatinine 0.50 L Estim Creat Clear Calc 174.53 Est GFR (MDRD) Af Amer 187 Est GFR (MDRD) Non-Af 155 BUN/Creatinine Ratio 23.8 H Glucose 84 Lactic Acid Calcium 8.4 L Phosphorus 2.3 L Magnesium 2.4 Ammonia Total Creatine Kinase Salicylates Acetaminophen Ethyl Alcohol Medical Necessity - Tobacco Use Smoking Status: Current every day smoker Tobacco Use: Cigarettes Assessment/Plan All Active Problems Unresponsive state (Acute) Respiratory failure (Acute) Acute encephalopathy (Acute) RECOMMENDATIONS: 1. Remove central line prior to discharge 2. Increase activity as tolerated 3. Hemodynamically stable on room air. Will sign off from a critical care perspective 4. Likely okay to be discharged directly from ICU IMPRESSIONS: 1. Coma/possible drug overdose Exact etiology is unclear. Patient has no recollection of the events prior to her presentation. Patient does not even remember going to a bar to drink. Patient is not showing any focal abnormalities indicating acute CVA. Patient does not appear to have any residual effects at this time. Central line will need to be removed,, but patient may be able to be discharged from the intensive care unit to home. 2. Possible anoxic injury Patient appears to be acting normally at this time 3. History of IV drug use/alcohol Complicates care, management, recovery and prognosis. Code Visit Inpatient E&M: 80100 Subs Hosp L2
--- NOTE | 2018-05-17 07:12 | DCINST_ITS ---
- Discharge Diagnoses Current Active Problems: Current Active and Chronic Problems Unresponsive state (Acute) Respiratory failure (Acute) Acute encephalopathy (Acute) Reason(s) for Visit for Discharge Instructions: Unresponsiveness You will use the following diet at home:: Regular Your food should be the consistency of: Regular Your liquids should be the consistency of: Regular/Thin Discharge Activity: Return to Normal Activity Additional Instructions: You are strongly advised to quit smoking, using illicit drugs and alcohol. Allergies/Adverse Reactions: Allergies No Known Allergies Allergy (Verified 05/16/18 03:55) Medications to take at Discharge NK [NK] 05/16/18 Primary Care Physician: Care Physician,No Primary [Primary Care Provider] - Please follow up with your Primary Care Physician in: within 2 weeks Test Results: Test results from this visit will be discussed in further detail at your follow- up appointment, if applicable. Proposed Discharge Date: 05/17/18
--- NOTE | 2018-05-17 08:05 | PCM.DC.SUM ---
Discharge Date and Diagnosis - Problem List Patient Problems: Active and Suspected Problems Unresponsive state (Acute) Opioid overdose (Suspected) Respiratory failure (Acute) Acute encephalopathy (Acute) Date of Admission: 05/16/18 Date of Discharge: 05/17/18 - Primary Discharge Diagnosis Active and Suspected Problems Unresponsive state (Acute) Opioid overdose (Suspected) Respiratory failure (Acute) Acute encephalopathy (Acute) Hospital Course and Treatment Summary of Care Provided: The patient is a 28 year old F [] Discharge Diet: No Restrictions Discharge Activity: Return to Normal Activity Home Medications: Medications to take at Discharge NK [NK] 05/16/18 Primary Care Physician: Care Physician,No Primary [Primary Care Provider] - Please follow up with your Primary Care Physician in: within 2 weeks Disposition: Home Minutes spent on discharge:: 35 Patient Condition:: Stable Medical Necessity - Tobacco Use Smoking Status: Current every day smoker Tobacco Use: Cigarettes Meaningful Use Info Meaningful Use Diagnoses (Choose all that apply): None applicable Code Visit Inpatient E&M: 65532 Disch Hosp
--- NOTE | 2018-05-17 09:56 | CASEMGMT ---
Social Work ICU Arrived to unit to see if patient in need of resources for home going. Patient already discharged home and left the unit. -GALLITO Loera, [employer]
== END 2018-05-17 08:52 | disposition home or self-care (01) | DRG 449 ==
LOC: ED 03:55 → ICU 04:31
PROVIDERS: Admitting Provider Hospitalist; Emergency Provider Emergency Medicine; Visit Provider Internal Medicine
DX: T40.2X1A Poisoning by other opioids, accidental (unintentional), initial encounter (principal); G92 Toxic encephalopathy; E87.0 Hyperosmolality and hypernatremia; E87.2 Acidosis; J96.90 Respiratory failure, unspecified, unspecified whether with hypoxia or hypercapnia; F17.210 Nicotine dependence, cigarettes, uncomplicated; R40.2432 Glasgow coma scale score 3-8, at arrival to emergency department
CPT/HCPCS: 31500; 31720; 36556; 36600; 51702; 70450; 71045; 80048; 80076; 80307; 80320; 80329; 81001; 81025; 82140; 82550; 82803; 82962; 83605; 83735; 84100; 84484; 85025; 85027; 93005; 94002; 94660; 97802; 99251; 99285; J7030; A4216; C1751; G0463; G0480; J0330; J2405